=== PATIENT | female | born 1980 | race Caucasian/White ===

== ENCOUNTER 2024-07-01 08:29 | Observation (INO) ==
[2024-07-01] MEDS: NOZIN NASAL SANITIZER TP ONE (09:31)
[2024-07-01] MEDS: NS 1,000 ML IV 1,000 ML ONE (09:32)
[2024-07-01 10:22] VITALS: BMI 36.6
[2024-07-01] MEDS ORDERED: ZOFRAN INJ 4 MG VIAL IVP PRN (10:46)
[2024-07-01] MEDS ORDERED: TYLENOL 325 MG TAB PO PRN (10:46)
[2024-07-01] MEDS ORDERED: HumaLOG SC PRN (10:52)
[2024-07-01] MEDS: NS 1,000 ML IV 1,000 ML IV SCH (11:00)
[2024-07-01] MEDS: NS 100 ML IV 100 ML ONE (11:02)
[2024-07-01] MEDS: ANCEF VIAL 1 GRAM ONE (11:02)
[2024-07-01] MEDS: ZOFRAN INJ 4 MG VIAL ONE (11:15)
[2024-07-01] MEDS: VERSED ONE (11:15)
[2024-07-01] MEDS: DIPRIVAN VIAL 20 ML ONE ×2 (11:15→11:55)
[2024-07-01] MEDS: KETAMINE HCL ONE (11:15)
[2024-07-01] MEDS: FENTANYL VIAL INJ 100 mcg ONE (11:15)
[2024-07-01] MEDS: REGLAN INJ 10 MG VIAL ONE (11:15)
[2024-07-01] MEDS ORDERED: PRECEDEX INJ VIAL ONE (11:15)
[2024-07-01] MEDS: PEPCID 20 MG VIAL ONE (11:15)
[2024-07-01] MEDS: MARCAINE 0.25% INJ ONE ×2 (11:32→11:49)
[2024-07-01] MEDS: DILAUDID INJ ONE (12:30)
[2024-07-01] MEDS: ANCEF VIAL 1 GRAM 2 G in NS 100 ML IV 100 ML IV SCH (13:54)
[2024-07-01] MEDS ORDERED: ANCEF VIAL 1 GRAM IVP SCH (14:00)
[2024-07-01] MEDS: DILAUDID INJ IVP PRN (17:33)
[2024-07-01] MEDS: PERCOCET TAB 5/325 MG PO PRN (19:13)
[2024-07-01] MEDS: COLACE CAP 100 MG PO SCH (21:41)
[2024-07-01] MEDS: NovoLIN R (or HumuLIN R) SUBCUT PRN (21:41)
[2024-07-02 04:09] VITALS: O2SAT 97
[2024-07-02 06:41] LABS: BLOOD UREA NITROGEN 6 mg/dL (7-18); CALCIUM 9.1 mg/dL (8.5-10.1); CARBON DIOXIDE 33.5 mmol/L (21-32); CHLORIDE 101 mmol/L (98-107); COR NA(FOR HYPERGLY) 145 mmol/L (136-145); CREATININE 0.79 mg/dL (0.55-1.02); GLUCOSE 290 mg/dL (65-99); POTASSIUM 4.9 mmol/L (3.5-5.1); SODIUM 140 mmol/L (136-145); eGFR NON BLACK RACES > 60 (>60)
--- NOTE | 2024-07-02 07:28 | NOTE.SOAP ---
Soap Note Note for Day of Date of Exam: 07/02/24 Subjective Data Subjective Data: POD#1 External Fixator Application for Trimal Ankle Fracture, Right. Patient Denies any nausea, vomiting, fevers, chills, shortness of breath, or chest pain. patient received 3 chocolate puddings last night after asking nurse for them while patient was on Keto (30 carb limit) diet. Objective Data Objective Data: Right Lower Extremity Exam: External fixator in place. Bars, pins, and wires are all tight and not loose. Pin sites are not infected. Alignment is maintained. Denies any signs or symptoms concerning for DVT or PE. Assessment Assessment: 43 year old severely uncontrolled diabetic female POD#1 application of external fixator, right for trimalleolar ankle fracture Plan Plan: - Strict NWB to RLE. - Restart home Eliquis. - Rx for Pain medication and zofran in chart. - Follow-up in chart. - Educated patient about obtaining sugar control and the complications of elevated sugars. She understands. I do not believe she will comply. - Instructed her to obtain new follow-up with PCP to get her sugars under control. She understood. - Patient okay for discharge from Podiatry standpoint.
[2024-07-02] MEDS: ELIQUIS PO SCH (08:09)
[2024-07-02] MEDS ORDERED: LOVENOX INJ 40 MG SYR SC SCH (09:00)
[2024-07-02 09:05] VITALS: BP 124/69; PULSE 105; RESP 20; TEMP 97.9
== END 2024-07-02 11:39 | disposition home or self-care (01) ==
LOC: SURG1 08:29 → MED/SURG 08:29
PROVIDERS: ADMIT Obstetrics & Gynecology Obstetrics; ATTEND Obstetrics & Gynecology Obstetrics
DX: X58.XXXA Exposure to other specified factors, initial encounter; I10 Essential (primary) hypertension; E11.65 Type 2 diabetes mellitus with hyperglycemia; S82.851A Displaced trimalleolar fracture of right lower leg, initial encounter for closed fracture